=== PATIENT | male | born 1945 | race Caucasian/White ===

== ENCOUNTER 2021-06-22 10:16 | Day surgery (SDC) | payer MEDICARE, OTHER ==
--- NOTE | 2021-06-22 11:06 | NUR ---
PT ARRIVED WITH SL IN PLACE TO [facility]. PT WOULD LIKE TO KEEP THIS IV FOR NOW, DECLINES POWERGLIDE. PT STATES HE WILL CONSIDER POWERGLIDE AT THE TIME HE NEEDS A NEW IV.
[2021-06-22] MEDS ORDERED: ACET325 (12:19)
[2021-06-22] MEDS ORDERED: C COMPLEX1000 M1 PO (12:20)
[2021-06-22] MEDS ORDERED: ELIQUIS5 M2 PO (12:20)
[2021-06-22] MEDS ORDERED: ACIDOPHILUS1 EAC3 PO (12:20)
[2021-06-22] MEDS ORDERED: ATOR40TA PO (12:21)
[2021-06-22] MEDS ORDERED: Azopt10 ML BOTHEYES (12:21)
[2021-06-22] MEDS ORDERED: TRIDESILON60 GM (12:22)
[2021-06-22] MEDS ORDERED: SIMBRINZA 1%-0.28 ML BOTHEYES (12:22)
[2021-06-22] MEDS ORDERED: CARV3.125 (12:22)
[2021-06-22] MEDS ORDERED: FERSU300 (12:23)
[2021-06-22] MEDS ORDERED: Flonase 0.05% N16 GM (12:23)
[2021-06-22] MEDS ORDERED: EZET10 (12:23)
[2021-06-22] MEDS ORDERED: FINA5 PO (12:23)
[2021-06-22] MEDS ORDERED: CULTURELLE KID1 EA10 PO (12:24)
[2021-06-22] MEDS ORDERED: LOSA50 PO (12:24)
[2021-06-22] MEDS ORDERED: MOTRIN IB200 MG PO (12:24)
[2021-06-22] MEDS ORDERED: PRED PH-MOXI-BRO5 M1 OP (12:25)
[2021-06-22] MEDS ORDERED: TERA5 PO (12:25)
[2021-06-22] MEDS ORDERED: OMEP20ER (12:25)
[2021-06-22] MEDS ORDERED: Travatan Z5 ML OP (12:26)
== END 2021-06-22 11:32 | disposition home or self-care (01) ==
LOC: ATC 10:16
DX: N15.1 Renal and perinephric abscess (principal)
CPT/HCPCS: J1335

== ENCOUNTER 2021-06-23 02:12 | Day surgery (SDC) | payer MEDICARE, OTHER ==
[~2021-06-23 02:12] MED LIST: ACET325; ACIDOPHILUS1 EAC3 PO; ATOR40TA PO; Azopt10 ML BOTHEYES; C COMPLEX1000 M1 PO; CARV3.125; CULTURELLE KID1 EA10 PO; ELIQUIS5 M2 PO; EZET10; FERSU300; FINA5 PO; Flonase 0.05% N16 GM; LOSA50 PO; MOTRIN IB200 MG PO; OMEP20ER; PRED PH-MOXI-BRO5 M1 OP; SIMBRINZA 1%-0.28 ML BOTHEYES; TERA5 PO; TRIDESILON60 GM; Travatan Z5 ML OP
== END 2021-06-23 14:12 | disposition home or self-care (01) ==
LOC: ATC 02:12
DX: N15.1 Renal and perinephric abscess (principal)
CPT/HCPCS: 96365; J1335

== ENCOUNTER 2021-06-24 00:12 | Day surgery (SDC) | payer MEDICARE, OTHER ==
[2021-06-24 13:38] LABS: BASOPHILS ABSOLUTE AUTO 0.05 K/mm3 (0.00-0.23); BASOPHILS PERCENT AUTO 1 % (0-2); EOSINOPHILS ABSOLUTE AUTO 0.34 K/mm3 (0.00-0.68); EOSINOPHILS PERCENT AUTO 6 % (0-6); Hematocrit 38.2 % (37.0-53.0); Hemoglobin 13.1 g/dL (13.5-17.5); IMMATURE GRAN ABSOLUTE AUTO 0.02 K/mm3 (0.00-0.10); IMMATURE GRAN PERCENT AUTO 0 % (0-1); LYMPHOCYTES ABSOLUTE AUTO 1.85 K/mm3 (0.84-5.20); LYMPHOCYTES PERCENT AUTO 33 % (21-46); MONOCYTES ABSOLUTE AUTO 0.67 K/mm3 (0.16-1.47); MONOCYTES PERCENT AUTO 12 % (4-13); Mean Corpuscular HGB 30.1 pg (26.0-34.0); Mean Corpuscular HGB Conc 34.3 g/dL (31.5-36.5); Mean Corpuscular Volume 88 fL (80-100); Mean Platelet Volume 9.8 fL (9.1-12.4); NEUTROPHILS ABSOLUTE AUTO 2.61 K/mm3 (1.96-9.15); NEUTROPHILS PERCENT AUTO 47 % (41-73); Platelet Count 155 K/mm3 (150-400); RDW Coefficient Variation 13.8 % (11.7-14.2); RDW Standard Deviation 44.3 fL (35.1-46.3); Red Blood Cell Count 4.35 M/mm3 (4.30-5.90); White Blood Cell Count 5.54 K/mm3 (4.00-11.30)
[2021-06-24 13:57] LABS: Alanine Aminotransfer (ALT/SGP 26 U/L (12-78); Albumin, Blood 3.5 g/dL (3.4-5.0); Albumin/Globulin Ratio 1.1 (0.8-1.8); Alk Phos 82 U/L (50-136); Anion Gap 6 mmol/L (6-16); Aspartate Aminotrans (AST/SGOT 16 U/L (12-37); Bilirubin, Total 0.8 mg/dL (0.1-1.0); Blood Urea Nitrogen 11 mg/dL (8-24); Bun/Creatinine Ratio 13.1 (12.0-20.0); CO2, Blood 28 mmol/L (21-32); Calcium, Blood 8.9 mg/dL (8.5-10.1); Chloride, Blood 107 mmol/L (98-108); Creatinine, Blood 0.84 mg/dL (0.60-1.20); Globulin, Blood 3.3 g/dL (2.2-4.0); Glomerular Filtration Rate >60 (60-); Glucose, Blood 82 mg/dL (70-99); Potassium, Blood 3.9 mmol/L (3.5-5.5); Sodium, Blood 141 mmol/L (136-145); Total Protein, Blood 6.8 g/dL (6.4-8.2)
--- NOTE | 2021-06-24 14:21 | NUR ---
LAB RESULTS FROM TODAY FAXED TO [facility]S OFFICE.
== END 2021-06-24 13:27 | disposition home or self-care (01) ==
LOC: ATC 00:12
DX: N15.1 Renal and perinephric abscess (principal); Z90.49 Acquired absence of other specified parts of digestive tract
CPT/HCPCS: 80053; 85025; 85651; 86140; J1335

== ENCOUNTER 2021-06-25 03:59 | Day surgery (SDC) | payer MEDICARE, OTHER | END 2021-06-25 11:00 | disposition home or self-care (01) | LOC: ATC 03:59 | DX: N15.1 Renal and perinephric abscess (principal) | CPT/HCPCS: J1335 ==

== ENCOUNTER 2021-06-26 03:26 | Day surgery (SDC) | payer MEDICARE, OTHER | END 2021-06-26 10:40 | disposition home or self-care (01) | LOC: ATC 03:26 | DX: N15.1 Renal and perinephric abscess (principal) | CPT/HCPCS: J1335 ==

== ENCOUNTER 2021-06-27 02:34 | Day surgery (SDC) | payer MEDICARE, OTHER | END 2021-06-27 11:49 | disposition home or self-care (01) | LOC: ATC 02:34 | DX: N15.1 Renal and perinephric abscess (principal) | CPT/HCPCS: J1335 ==

== ENCOUNTER 2021-06-28 00:37 | Day surgery (SDC) | payer MEDICARE, OTHER | END 2021-06-28 11:20 | disposition home or self-care (01) | LOC: ATC 00:37 | DX: N15.1 Renal and perinephric abscess (principal) | CPT/HCPCS: J1335 ==

== ENCOUNTER 2021-06-29 02:58 | Day surgery (SDC) | payer MEDICARE, OTHER ==
[2021-06-29 11:32] LABS: BASOPHILS ABSOLUTE AUTO 0.04 K/mm3 (0.00-0.23); BASOPHILS PERCENT AUTO 1 % (0-2); EOSINOPHILS ABSOLUTE AUTO 0.34 K/mm3 (0.00-0.68); EOSINOPHILS PERCENT AUTO 6 % (0-6); Hematocrit 37.9 % (37.0-53.0); Hemoglobin 13.2 g/dL (13.5-17.5); IMMATURE GRAN ABSOLUTE AUTO 0.02 K/mm3 (0.00-0.10); IMMATURE GRAN PERCENT AUTO 0 % (0-1); LYMPHOCYTES ABSOLUTE AUTO 1.58 K/mm3 (0.84-5.20); LYMPHOCYTES PERCENT AUTO 26 % (21-46); MONOCYTES ABSOLUTE AUTO 0.68 K/mm3 (0.16-1.47); MONOCYTES PERCENT AUTO 11 % (4-13); Mean Corpuscular HGB 30.5 pg (26.0-34.0); Mean Corpuscular HGB Conc 34.8 g/dL (31.5-36.5); Mean Corpuscular Volume 88 fL (80-100); Mean Platelet Volume 9.4 fL (9.1-12.4); NEUTROPHILS ABSOLUTE AUTO 3.32 K/mm3 (1.96-9.15); NEUTROPHILS PERCENT AUTO 56 % (41-73); Platelet Count 156 K/mm3 (150-400); RDW Coefficient Variation 13.5 % (11.7-14.2); RDW Standard Deviation 43.8 fL (35.1-46.3); Red Blood Cell Count 4.33 M/mm3 (4.30-5.90); White Blood Cell Count 5.98 K/mm3 (4.00-11.30)
--- NOTE | 2021-06-29 11:41 | NUR ---
UNABLE TO DRAW LABS FROM IV START. LABS DRAWN VIA 21 GUAGUE BUTTERFLY NEEDLE PER PROTOCOL FROM RIGHT AC. PT HAS OFFICE VISIT SCHEDULED FOR Sunday07/01/21 AT 0800, AND PER ORDER LABS WERE DUE TODAY (2 DAYS PRIOR TO OFFICE VISIT). WILL BE FAXING RESULTS
[2021-06-29 11:53] LABS: Alanine Aminotransfer (ALT/SGP 25 U/L (12-78); Albumin, Blood 3.2 g/dL (3.4-5.0); Albumin/Globulin Ratio 0.9 (0.8-1.8); Alk Phos 89 U/L (50-136); Anion Gap 3 mmol/L (6-16); Aspartate Aminotrans (AST/SGOT 19 U/L (12-37); Bilirubin, Total 0.6 mg/dL (0.1-1.0); Blood Urea Nitrogen 13 mg/dL (8-24); Bun/Creatinine Ratio 15.6 (12.0-20.0); C-REACTIVE PROTEIN, EXT RANGE 0.638 mg/dL (0.000-0.300); CO2, Blood 29 mmol/L (21-32); Calcium, Blood 8.7 mg/dL (8.5-10.1); Chloride, Blood 109 mmol/L (98-108); Creatinine, Blood 0.84 mg/dL (0.60-1.20); Globulin, Blood 3.5 g/dL (2.2-4.0); Glomerular Filtration Rate >60 (60-); Glucose, Blood 101 mg/dL (70-99); Potassium, Blood 3.9 mmol/L (3.5-5.5); Sodium, Blood 141 mmol/L (136-145); Total Protein, Blood 6.7 g/dL (6.4-8.2)
== END 2021-06-29 11:41 | disposition home or self-care (01) ==
LOC: ATC 02:58
DX: N15.1 Renal and perinephric abscess (principal)
CPT/HCPCS: 80053; 85025; 85651; 86140; J1335

== ENCOUNTER 2021-07-01 00:32 | Day surgery (SDC) | payer MEDICARE, OTHER | END 2021-07-01 11:15 | disposition home or self-care (01) | LOC: ATC 00:32 | DX: N15.1 Renal and perinephric abscess (principal) | CPT/HCPCS: J1335 ==

== ENCOUNTER 2021-07-02 07:53 | Day surgery (SDC) | payer MEDICARE, OTHER | END 2021-07-02 10:58 | disposition home or self-care (01) | LOC: ATC 07:53 | DX: N15.1 Renal and perinephric abscess (principal) | CPT/HCPCS: J1335 ==

== ENCOUNTER 2021-07-03 07:36 | Day surgery (SDC) | payer MEDICARE, OTHER | END 2021-07-03 11:05 | disposition home or self-care (01) | LOC: ATC 07:36 | DX: N15.1 Renal and perinephric abscess (principal) | CPT/HCPCS: J1335 ==

== ENCOUNTER 2021-07-05 05:06 | Day surgery (SDC) | payer MEDICARE, OTHER ==
--- NOTE | 2021-07-05 11:00 | NUR ---
PER[facility] WEEKLY LABS OUT OF IV WITH NO PROBLEMS. DISCARDED 5CC OF BLOOD PRIOR TO DRAW 10CC FOR LABS. FLUSHED EASILY POST LAB DRAW.
[2021-07-05 11:32] LABS: BASOPHILS ABSOLUTE AUTO 0.06 K/mm3 (0.00-0.23); BASOPHILS PERCENT AUTO 1 % (0-2); EOSINOPHILS ABSOLUTE AUTO 0.29 K/mm3 (0.00-0.68); EOSINOPHILS PERCENT AUTO 5 % (0-6); Hematocrit 39.7 % (37.0-53.0); Hemoglobin 13.6 g/dL (13.5-17.5); IMMATURE GRAN ABSOLUTE AUTO 0.01 K/mm3 (0.00-0.10); IMMATURE GRAN PERCENT AUTO 0 % (0-1); LYMPHOCYTES ABSOLUTE AUTO 1.65 K/mm3 (0.84-5.20); LYMPHOCYTES PERCENT AUTO 29 % (21-46); MONOCYTES ABSOLUTE AUTO 0.55 K/mm3 (0.16-1.47); MONOCYTES PERCENT AUTO 10 % (4-13); Mean Corpuscular HGB 30.2 pg (26.0-34.0); Mean Corpuscular HGB Conc 34.3 g/dL (31.5-36.5); Mean Corpuscular Volume 88 fL (80-100); Mean Platelet Volume 9.6 fL (9.1-12.4); NEUTROPHILS ABSOLUTE AUTO 3.22 K/mm3 (1.96-9.15); NEUTROPHILS PERCENT AUTO 56 % (41-73); Platelet Count 166 K/mm3 (150-400); RDW Coefficient Variation 13.4 % (11.7-14.2); RDW Standard Deviation 43.5 fL (35.1-46.3); Red Blood Cell Count 4.51 M/mm3 (4.30-5.90); White Blood Cell Count 5.78 K/mm3 (4.00-11.30)
[2021-07-05 11:51] LABS: Alanine Aminotransfer (ALT/SGP 28 U/L (12-78); Albumin, Blood 3.3 g/dL (3.4-5.0); Albumin/Globulin Ratio 0.9 (0.8-1.8); Alk Phos 97 U/L (50-136); Anion Gap 4 mmol/L (6-16); Aspartate Aminotrans (AST/SGOT 19 U/L (12-37); Bilirubin, Total 0.6 mg/dL (0.1-1.0); Blood Urea Nitrogen 11 mg/dL (8-24); Bun/Creatinine Ratio 12.8 (12.0-20.0); CO2, Blood 27 mmol/L (21-32); Calcium, Blood 8.9 mg/dL (8.5-10.1); Chloride, Blood 109 mmol/L (98-108); Creatinine, Blood 0.86 mg/dL (0.60-1.20); Globulin, Blood 3.5 g/dL (2.2-4.0); Glomerular Filtration Rate >60 (60-); Glucose, Blood 136 mg/dL (70-99); Potassium, Blood 3.9 mmol/L (3.5-5.5); Sodium, Blood 140 mmol/L (136-145); Total Protein, Blood 6.8 g/dL (6.4-8.2)
== END 2021-07-05 11:33 | disposition home or self-care (01) ==
LOC: ATC 05:06
PROVIDERS: Otolaryngology
DX: N15.1 Renal and perinephric abscess (principal)
CPT/HCPCS: 80053; 85025; 85651; 86140; J1335

== ENCOUNTER 2021-07-06 00:24 | Day surgery (SDC) | payer MEDICARE, OTHER | END 2021-07-06 10:47 | disposition home or self-care (01) | LOC: ATC 00:24 | DX: N15.1 Renal and perinephric abscess (principal) | CPT/HCPCS: J1335 ==

== ENCOUNTER 2021-07-07 03:23 | Day surgery (SDC) | payer MEDICARE, OTHER | END 2021-07-07 10:46 | disposition home or self-care (01) | LOC: ATC 03:23 | DX: N15.1 Renal and perinephric abscess (principal) | CPT/HCPCS: 96374; J1335 ==

== ENCOUNTER 2021-07-08 02:23 | Day surgery (SDC) | payer MEDICARE, OTHER | END 2021-07-08 11:25 | disposition home or self-care (01) | LOC: ATC 02:23 | DX: N15.1 Renal and perinephric abscess (principal) | CPT/HCPCS: J1335 ==

== ENCOUNTER 2021-07-09 03:51 | Day surgery (SDC) | payer MEDICARE, OTHER | END 2021-07-09 10:50 | disposition home or self-care (01) | LOC: ATC 03:51 | DX: N15.1 Renal and perinephric abscess (principal) | CPT/HCPCS: J1335 ==

== ENCOUNTER 2021-07-10 03:30 | Day surgery (SDC) | payer MEDICARE, OTHER | END 2021-07-10 10:52 | disposition home or self-care (01) | LOC: ATC 03:30 | DX: N15.1 Renal and perinephric abscess (principal) | CPT/HCPCS: J1335 ==

== ENCOUNTER 2021-07-11 01:41 | Day surgery (SDC) | payer MEDICARE, OTHER | END 2021-07-11 11:19 | disposition home or self-care (01) | LOC: ATC 01:41 | DX: N15.1 Renal and perinephric abscess (principal); I25.10 Atherosclerotic heart disease of native coronary artery without angina pectoris; Z88.0 Allergy status to penicillin; Z88.5 Allergy status to narcotic agent; Z88.8 Allergy status to other drugs, medicaments and biological substances | CPT/HCPCS: 96365; J1335 ==

== ENCOUNTER 2021-07-12 04:02 | Day surgery (SDC) | payer MEDICARE, OTHER ==
[2021-07-12 12:05] LABS: BASOPHILS ABSOLUTE AUTO 0.04 K/mm3 (0.00-0.23); BASOPHILS PERCENT AUTO 1 % (0-2); EOSINOPHILS ABSOLUTE AUTO 0.26 K/mm3 (0.00-0.68); EOSINOPHILS PERCENT AUTO 5 % (0-6); Hematocrit 39.9 % (37.0-53.0); Hemoglobin 13.5 g/dL (13.5-17.5); IMMATURE GRAN ABSOLUTE AUTO 0.01 K/mm3 (0.00-0.10); IMMATURE GRAN PERCENT AUTO 0 % (0-1); LYMPHOCYTES ABSOLUTE AUTO 1.59 K/mm3 (0.84-5.20); LYMPHOCYTES PERCENT AUTO 30 % (21-46); MONOCYTES ABSOLUTE AUTO 0.57 K/mm3 (0.16-1.47); MONOCYTES PERCENT AUTO 11 % (4-13); Mean Corpuscular HGB 30.1 pg (26.0-34.0); Mean Corpuscular HGB Conc 33.8 g/dL (31.5-36.5); Mean Corpuscular Volume 89 fL (80-100); NEUTROPHILS PERCENT AUTO 53 % (41-73); Platelet Count 178 K/mm3 (150-400); RDW Coefficient Variation 13.4 % (11.7-14.2); RDW Standard Deviation 43.8 fL (35.1-46.3); Red Blood Cell Count 4.49 M/mm3 (4.30-5.90); White Blood Cell Count 5.27 K/mm3 (4.00-11.30)
== END 2021-07-12 11:30 | disposition home or self-care (01) ==
LOC: ATC 04:02
PROVIDERS: Physician Assistant Medical
DX: N15.1 Renal and perinephric abscess (principal)
CPT/HCPCS: 85025; 85651; J1335

== ENCOUNTER 2021-07-13 00:04 | Day surgery (SDC) | payer MEDICARE, OTHER ==
--- NOTE | 2021-07-13 10:42 | NUR ---
IN/OUT IV START FOR LAB DRAW, LAB LOST GOLD TUBE YESTERDAY SO DRAWING ANOTHER ONE TODAY.
[2021-07-13 11:21] LABS: Alanine Aminotransfer (ALT/SGP 30 U/L (12-78); Albumin, Blood 3.4 g/dL (3.4-5.0); Anion Gap 4 mmol/L (6-16); Aspartate Aminotrans (AST/SGOT 22 U/L (12-37); Blood Urea Nitrogen 12 mg/dL (8-24); CO2, Blood 29 mmol/L (21-32); Calcium, Blood 8.5 mg/dL (8.5-10.1); Chloride, Blood 106 mmol/L (98-108); Glucose, Blood 123 mg/dL (70-99); Sodium, Blood 139 mmol/L (136-145)
[2021-07-13 11:24] LABS: Alk Phos 91 U/L (50-136); Bilirubin, Total 0.6 mg/dL (0.1-1.0); Bun/Creatinine Ratio 13.1 (12.0-20.0); Creatinine, Blood 0.91 mg/dL (0.60-1.20); Globulin, Blood 3.3 g/dL (2.2-4.0); Glomerular Filtration Rate >60 (60-); Total Protein, Blood 6.7 g/dL (6.4-8.2)
== END 2021-07-13 10:55 | disposition home or self-care (01) ==
LOC: ATC 00:04
DX: N15.1 Renal and perinephric abscess (principal)
CPT/HCPCS: 80053; 86140; J1335

== ENCOUNTER 2021-07-14 02:01 | Day surgery (SDC) | payer MEDICARE, OTHER | END 2021-07-14 11:25 | disposition home or self-care (01) | LOC: ATC 02:01 | DX: N15.1 Renal and perinephric abscess (principal) | CPT/HCPCS: 96365; J1335 ==

== ENCOUNTER 2021-07-15 03:11 | Day surgery (SDC) | payer MEDICARE, OTHER | END 2021-07-15 13:24 | disposition home or self-care (01) | LOC: ATC 03:11 | DX: N15.1 Renal and perinephric abscess (principal); I25.10 Atherosclerotic heart disease of native coronary artery without angina pectoris; Z88.1 Allergy status to other antibiotic agents; Z88.5 Allergy status to narcotic agent | CPT/HCPCS: J1335 ==

== ENCOUNTER 2021-07-16 22:31 | Day surgery (SDC) | payer MEDICARE, OTHER | END 2021-07-17 22:35 | disposition home or self-care (01) | LOC: ATC 22:31 | DX: N15.1 Renal and perinephric abscess (principal) | CPT/HCPCS: 96365; J1335 ==

== ENCOUNTER 2021-07-17 00:26 | Day surgery (SDC) | payer MEDICARE, OTHER | END 2021-07-17 10:40 | disposition home or self-care (01) | LOC: ATC 00:26 | DX: N15.1 Renal and perinephric abscess (principal) | CPT/HCPCS: J1335 ==

== ENCOUNTER 2021-07-18 01:48 | Day surgery (SDC) | payer MEDICARE, OTHER | END 2021-07-18 11:44 | disposition home or self-care (01) | LOC: ATC 01:48 | DX: N15.1 Renal and perinephric abscess (principal) | CPT/HCPCS: J1335 ==

== ENCOUNTER 2021-07-19 03:47 | Day surgery (SDC) | payer MEDICARE, OTHER ==
[2021-07-19 11:29] LABS: C-REACTIVE PROTEIN, EXT RANGE 0.293 mg/dL (0.000-0.300)
[2021-07-19 11:32] LABS: Alanine Aminotransfer (ALT/SGP 29 U/L (12-78); Albumin, Blood 3.4 g/dL (3.4-5.0); Albumin/Globulin Ratio 1.1 (0.8-1.8); Alk Phos 83 U/L (50-136); Anion Gap 2 mmol/L (6-16); Aspartate Aminotrans (AST/SGOT 20 U/L (12-37); Bilirubin, Total 0.7 mg/dL (0.1-1.0); Blood Urea Nitrogen 14 mg/dL (8-24); Bun/Creatinine Ratio 15.3 (12.0-20.0); CO2, Blood 28 mmol/L (21-32); Calcium, Blood 8.5 mg/dL (8.5-10.1); Chloride, Blood 110 mmol/L (98-108); Creatinine, Blood 0.92 mg/dL (0.60-1.20); Globulin, Blood 3.1 g/dL (2.2-4.0); Glomerular Filtration Rate >60 (60-); Glucose, Blood 125 mg/dL (70-99); Potassium, Blood 4.1 mmol/L (3.5-5.5); Sodium, Blood 140 mmol/L (136-145); Total Protein, Blood 6.5 g/dL (6.4-8.2)
[2021-07-19 12:42] LABS: BASOPHILS ABSOLUTE AUTO 0.04 K/mm3 (0.00-0.23); BASOPHILS PERCENT AUTO 1 % (0-2); EOSINOPHILS ABSOLUTE AUTO 0.27 K/mm3 (0.00-0.68); EOSINOPHILS PERCENT AUTO 6 % (0-6); Hematocrit 37.8 % (37.0-53.0); Hemoglobin 13.2 g/dL (13.5-17.5); IMMATURE GRAN ABSOLUTE AUTO 0.02 K/mm3 (0.00-0.10); IMMATURE GRAN PERCENT AUTO 0 % (0-1); LYMPHOCYTES ABSOLUTE AUTO 1.43 K/mm3 (0.84-5.20); LYMPHOCYTES PERCENT AUTO 29 % (21-46); MONOCYTES ABSOLUTE AUTO 0.53 K/mm3 (0.16-1.47); MONOCYTES PERCENT AUTO 11 % (4-13); Mean Corpuscular HGB 30.5 pg (26.0-34.0); Mean Corpuscular HGB Conc 34.9 g/dL (31.5-36.5); Mean Corpuscular Volume 87 fL (80-100); Mean Platelet Volume 9.7 fL (9.1-12.4); NEUTROPHILS ABSOLUTE AUTO 2.64 K/mm3 (1.96-9.15); NEUTROPHILS PERCENT AUTO 54 % (41-73); Platelet Count 161 K/mm3 (150-400); RDW Coefficient Variation 13.2 % (11.7-14.2); RDW Standard Deviation 42.3 fL (35.1-46.3); Red Blood Cell Count 4.33 M/mm3 (4.30-5.90); White Blood Cell Count 4.93 K/mm3 (4.00-11.30)
== END 2021-07-19 11:10 | disposition home or self-care (01) ==
LOC: ATC 03:47
PROVIDERS: Physician Assistant Medical
DX: N15.1 Renal and perinephric abscess (principal)
CPT/HCPCS: 80053; 85025; 85651; 86140; J1335

== ENCOUNTER 2021-07-20 00:34 | Day surgery (SDC) | payer MEDICARE, OTHER | END 2021-07-20 08:27 | disposition home or self-care (01) | LOC: ATC 00:34 | DX: N15.1 Renal and perinephric abscess (principal) | CPT/HCPCS: J1335 ==

== ENCOUNTER 2021-07-22 00:28 | Day surgery (SDC) | payer MEDICARE, OTHER | END 2021-07-22 11:44 | disposition home or self-care (01) | LOC: ATC 00:28 | DX: N15.1 Renal and perinephric abscess (principal); Z90.49 Acquired absence of other specified parts of digestive tract | CPT/HCPCS: J1335 ==